=== PATIENT | female | born 1995 | race Two or more races ===

== ENCOUNTER 2017-03-27 12:30 | Inpatient (IN) | payer MEDICAID ==
[~2017-03-27] VITALS: Ht 160 cm; Wt 83.6 kg
[2017-03-28] MEDS ORDERED: EPHEDrine SULFATE 50 MG/5 ML SYG ONE (07:00)
[2017-03-28] MEDS ORDERED: OXYTOCIN 30 UNITS/LR 500 ML IV SCH (12:30)
[2017-03-28] MEDS ORDERED: METHYLERGONOVINE 0.2 MG INJ IM PRN ×2 (12:30→18:00)
[2017-03-28] MEDS ORDERED: MISOPROSTOL 200 MCG TAB PR PRN ×2 (12:30→18:00)
[2017-03-28] MEDS ORDERED: OXYTOCIN 30 UNITS/LR 500 ML IV PRN ×2 (12:30→18:00)
[2017-03-28] MEDS ORDERED: CEFAZOLIN 2 GM/50 ML (PMX) 50 ML IV SCH (12:30)
[2017-03-28] MEDS ORDERED: CARBOPROST 250 MCG INJ IM PRN ×2 (12:30→18:00)
[2017-03-28 12:51] VITALS: BP 107/53; PULSE 69; RESP 20
[2017-03-28 12:53] VITALS: Ht 160 cm; Wt 83.6 kg
[2017-03-28] MEDS ORDERED: PRENAT PO (12:57)
[2017-03-28 13:09] LABS: BASOPHILS % 0.3 % (0.0-2.0); EOSINOPHILS # 0.1 10^3/ul (0.0-0.5); EOSINOPHILS % 1.4 % (0.0-7.0); HEMOGLOBIN 12.4 g/dl (12.0-16.0); LYMPHOCYTES # 1.5 10^3/ul (0.8-2.9); LYMPHOCYTES % 20.5 % (15.0-51.0); MEAN CORPUSCULAR HEMOGLOBIN 30.5 pg (29.0-33.0); MEAN CORPUSCULAR HGB CONC 34.4 g/dl (32.0-37.0); MEAN CORPUSCULAR VOLUME 88.7 fl (82.0-101.0); MEAN PLATELET VOLUME 10.3 fl (7.4-10.4); MONOCYTE # 0.6 10^3/ul (0.3-0.9); MONOCYTES % 8.1 % (0.0-11.0); NEUTROPHIL # 5.1 10^3/ul (1.6-7.5); NEUTROPHILS % 68.8 % (39.0-77.0); PLATELET COUNT 254 10^3/UL (140-415); RED BLOOD COUNT 4.06 10^6/ul (4.20-5.40); RED CELL DISTRIBUTION WIDTH 13.3 % (11.5-14.5); WHITE BLOOD COUNT 7.4 10^3/ul (4.8-10.8)
[2017-03-28] MEDS: LACTATED RINGER'S 1,000 ML IV SCH ×2 (13:18→13:45)
[2017-03-28 13:23] LABS: ADD SCAN DIFF NO
[2017-03-28 13:42] LABS: INR 0.95; PARTIAL THROMBOPLASTIN TIME 30.3 Sec (25.0-35.0); PROTIME 12.7 Sec (12.2-14.2)
[2017-03-28] MEDS ORDERED: CITRIC ACID/NA CITRATE 30 ML CUP ONE (13:42)
[2017-03-28] MEDS ORDERED: ONDANSETRON 4 MG INJ IV PRN ×2 (14:30→16:00)
[2017-03-28] MEDS ORDERED: METOCLOPRAMIDE 10 MG INJ IV PRN (14:30)
[2017-03-28] MEDS ORDERED: HYDROmorphONE (0.2 MG/ML) 10ML SYG IV PRN ×3 (14:30)
[2017-03-28] MEDS ORDERED: DIPHENHYDRAMINE 50 MG INJ IV PRN ×2 (14:30→16:00)
[2017-03-28] MEDS ORDERED: MEPERIDINE 25 MG INJ IV PRN (14:30)
[2017-03-28] MEDS ORDERED: CITRIC ACID/SODIUM CITRATE 15 ML CUP PO ONE (14:30)
[2017-03-28] MEDS ORDERED: morphine SULFATE/PF (10 MG/10 ML) INJ ONE (14:34)
[2017-03-28] MEDS ORDERED: METOCLOPRAMIDE 10 MG INJ ONE (14:34)
[2017-03-28] MEDS ORDERED: KETOROLAC 30 MG INJ ONE (14:34)
[2017-03-28] MEDS ORDERED: OXYTOCIN 30 UNITS/LR 500 ML IV ONE (15:31)
--- NOTE | 2017-03-28 15:40 | HP ---
Date/Time of Note Date/Time of Note DATE: 03/28/17 TIME: 14:51 OB - History Hx of Present Free Text/Dictation 21 years old female 0001 admitted to hospital @ 39 weeks and 1 day history of previous This patient has been under the care of care clinic was not complicated with gestational diabetes -induced hypertension or any other serious surgical or medical condition Chief Complaint: 39 weeks 1 day history of previous Estimated Due Date: Apr 03, 2017 : 2 Para: 1 Care: Good Care Ultrasounds: Normal mid trimester US Obstetrical Complications: None Medical Complications: None Past Family/Social History * Past Medical, Surgical, Family and Obstetric Histories reviewed from chart. Rubella: immune RPR/VDRL: Negative GBS Status: Negative HBsAG: Negative OB Admission Exam Vital Signs Vital Signs Vital Signs Date Time Temp Pulse Resp B/P Pulse Ox O2 Delivery O2 Flow Rate FiO2 03/28/17 12:51 98.0 69 20 107/53 98 Room Air Physical Exam HEENT: WNL Heart: Rhythm Normal Lungs: Clear, Equal Abdomen: WNL Extremities: Normal Reflexes: Normal Cervical Dilatation: None Station: -2 Heart Rate: 130's Accelerations: Accelerations Present Decelerations: No Decelerations Varibility: Moderate Contractions on Admission: None Last 72 hours Lab Results CBC & BMP 03/28/17 12:38 OB Assessment/Plan Reason for admission: other ( 39 weeks and 1 day history of previous C- section, admitted for repeat ) ELISE KUMAR MD Mar 28, 2017 15:40
--- NOTE | 2017-03-28 15:54 | OPR ---
Operative Report Planned Procedure Free Text/Dictation 21 years old 39 weeks 1 day history of previous Procedure date Mar 28, 2017 Procedure(s) Repeat Performed by: ELISE KUMAR MD Assisting provider: JESUS MANUEL GANNON MD Anesthesiologist: MARINA CURTIS MD Pre-procedure diagnosis 39 weeks 1 day history of previous Anesthesia Type: spinal Procedure Description Under satisfactory [spine] anesthesia, the patient was prepped and draped and placed in a supine position, tilted to the left. Pfannenstiel incision was made , carried through the subcutaneous tissue. Bleeders brought under control with electrocautery. Fascia incised to the length of the incision. Rectus muscles from the fascia, divided midline. Peritoneum exposed, entered through a transverse incision. Exploration of abdomen revealed gravid uterus normal- appearing tubes and ovaries. Bladder flap was developed. Transverse incision was made in the lower segment of the uterus. Amniotic sac ruptured. [Clear] amniotic fluid noted. Baby boy was delivered from occiput posterior nasal oropharyngeal suction was performed. baby handed to the team for immediate attention. Patient received 20 units of Pitocin , placenta delivered manually intact. Uterine cavity cleaned with wet sponge and drainage established. Uterus closed in 2 layers using [Monocryl #1] in continue fashion. Peritoneal cavity irrigated with warm saline. Sponge, needle instrument count reported to be correct. Abdominal peritoneum closed with [] 2-0 chromic catgut continuously. Rectus muscle approximated with interrupted [2-0 chromic catgut]. Fascia closed with [#1 PDS], subcutaneous tissue approximated with interrupted 2 -0 chromic catgut , skin closed with sari. Estimated blood loss [] 600 mL. Urine bag contained [200]mL of urine Post-Procedure Post-procedure diagnosis Repeat Findings: live Baby [boy], Apgars [9] and [9], weight [3360], position [occiput transverse], [vertex] presentation [no nuchal cord]cord. Complications: None Pt Condition post procedure: stable Physician Certification I, the undersigned physician, hereby certify that I have discussed the procedure described in this consent form with this patient (or the patient's legal fraud representative), including: * The risk and benefits of the procedure; * Any adverse reactions that may reasonably be expected to occur; * Any alternative efficacious methods of treatment which may be medically viable ; * The potential problems that may occur during recuperation; * Potential for blood transfusion and associated risks/benefits; and * Any research or economic interest I may have regarding this treatment. I further certify that the patient/legally responsible person was encouraged to ask question and that all questions were answered. ELISE KUMAR MD Mar 28, 2017 15:52
[2017-03-28] MEDS ORDERED: NALOXONE (0.4 MG/ML) INJ IV PRN (16:00)
[2017-03-28] MEDS ORDERED: HYDROmorphONE 1 MG/ML SYG IV PRN ×3 (16:00)
[2017-03-28 18:00] VITALS: BP 95/55; PULSE 57; RESP 18
[2017-03-28] MEDS: IBUPROFEN 600 MG TAB PO SCH (18:00)
[2017-03-28] MEDS ORDERED: LANOLIN 7 GM TUBE TOP PRN (18:00)
[2017-03-28] MEDS ORDERED: OXYCODONE/ACETAMINOPHEN (5/325) TAB PO PRN ×2 (18:00)
[2017-03-28] MEDS ORDERED: ACETAMINOPHEN/CODEINE #3 TAB PO PRN ×2 (18:00)
[2017-03-28] MEDS: OXYTOCIN 30 UNITS/LR 500 ML IV SCH ×2 (19:10→23:47)
[2017-03-28 19:30] VITALS: BP 99/59; PULSE 58; RESP 19
[2017-03-28 20:30] VITALS: BP 98/58; PULSE 60; RESP 19
[2017-03-28] MEDS ORDERED: CEFAZOLIN 1 GM/50 ML (PMX) 50 ML IVPB SCH (23:00)
[2017-03-29] VITALS: BP 99/59; PULSE 58; RESP 18
[2017-03-29] MEDS: OXYTOCIN 30 UNITS/LR 500 ML IV SCH ×6 (01:51→21:51)
[2017-03-29 04:05] VITALS: BP 100/59; PULSE 63; RESP 20
--- NOTE | 2017-03-29 06:57 | PN ---
Date/Time of Note Date/Time of Note DATE: 03/29/17 TIME: 06:54 Assessment/Plan VTE Prophylaxis VTE Prophylaxis Intervention: SCD's Lines/Catheters IV Catheter Type (from Nrsg): Peripheral IV Subjective 24 Hr Interval Summary Free Text/Dictation anesthesia note: A 21 year female after post duramorph, pod ! pain is controlled, no itiching, headcahe, n/v, back pain or infection, irritation. care per surgery Exam/Review of Systems Vital Signs Vitals Vital Signs Date Time Temp Pulse Resp B/P Pulse Ox O2 Delivery O2 Flow Rate FiO2 03/29/17 04:05 98.3 63 20 100/59 Room Air 03/28/17 12:51 98 Intake and Output 03/28/17 03/28/17 03/29/17 15:00 23:00 07:00 Intake Total 1617 ml 705 ml Output Total 1150 ml 1000 ml Balance 467 ml -295 ml Results Result Diagram: 03/28/17 1238 Results 24 hrs Laboratory Tests Test 03/28/17 12:38 White Blood Count 7.4 Red Blood Count 4.06 L Hemoglobin 12.4 Hematocrit 36.0 L Mean Corpuscular Volume 88.7 Mean Corpuscular Hemoglobin 30.5 Mean Corpuscular Hemoglobin Concent 34.4 Red Cell Distribution Width 13.3 Platelet Count 254 Mean Platelet Volume 10.3 Neutrophils % 68.8 Lymphocytes % 20.5 Monocytes % 8.1 Eosinophils % 1.4 Basophils % 0.3 Nucleated Red Blood Cells % 0.0 Neutrophils # 5.1 Lymphocytes # 1.5 Monocytes # 0.6 Eosinophils # 0.1 Basophils # 0.0 Nucleated Red Blood Cells # 0.0 Prothrombin Time 12.7 Prothrombin Time Ratio 1.0 INR International Normalized Ratio 0.95 Activated Partial Thromboplast Time 30.3 Rapid Plasma Reagin NONREACTIVE Medications Medications Current Medications Naloxone HCl (Narcan) 0.1 mg Q2M PRN IV FOR RESP RATE 8 OR LESS; Start at 16:00; Stop 03/29/17 at 15:59 Ketorolac Tromethamine (Toradol) 30 mg Q6H PRN IV PAIN; Start 03/28/17 at 16:00 ; Stop 03/29/17 at 15:59 Hydromorphone HCl (Dilaudid) 1 mg Q3H PRN IV BREAKTHROUGH PAIN; Start 03/28/17 at 16:00; Stop 03/29/17 at 15:59 Hydromorphone HCl (Dilaudid) 0.2 mg Q3H PRN IV PAIN LEVEL 1-5; Start 03/28/17 at 16:00; Stop 03/29/17 at 15:59 Hydromorphone HCl (Dilaudid) 0.4 mg Q3H PRN IV PAIN LEVEL 6-10; Start 03/28/17 at 16:00; Stop 03/29/17 at 15:59 Diphenhydramine HCl (Benadryl) 25 mg Q6H PRN IV ITCHING; Start 03/28/17 at 16: 00; Stop 03/29/17 at 15:59 Ondansetron HCl (Zofran Inj) 4 mg Q6H PRN IV NAUSEA AND/OR VOMITING; Start at 16:00; Stop 03/29/17 at 15:59 Acetaminophen/ Codeine Phosphate (Tylenol No.3) 1 tab Q4H PRN PO PAIN LEVEL 4-6 ; Start 03/28/17 at 18:00 Acetaminophen/ Codeine Phosphate (Tylenol No.3) 2 tab Q4H PRN PO PAIN LEVEL 7- 10; Start 03/28/17 at 18:00 Oxycodone/ Acetaminophen (Percocet (5/ 325)) 1 tab Q4H PRN PO PAIN LEVEL 4-6; Start 03/28/17 at 18:00 Oxycodone/ Acetaminophen (Percocet (5/ 325)) 2 tab Q4H PRN PO PAIN LEVEL 7-10; Start 03/28/17 at 18:00 Ibuprofen (Motrin) 600 mg Q6 PO ; Start 03/28/17 at 18:00 Simethicone (Mylicon) 160 mg Q8H PRN PO DISTENSION/GAS/BLOATING; Start at 18:00 Senna/Docusate Sodium (Senokot-S) 1 tab BID PO ; Start 03/29/17 at 21:00 Diphtheria/ Tetanus/Acell Pertussis 0.5 ml 0.5 ml ONCE ONCE IM* ; Start 03/31/17 at 09:00; Stop 03/31/17 at 09:01 Oxytocin/Lactated Ringer's 500 ml @ 0 mls/hr ONCE PRN IV For Hemorrhage Management; Start 03/28/17 at 18:00 Methylergonovine Maleate (Methergine) 0.2 mg ONCE PRN IM VAGINAL BLEEDING; Start 03/28/17 at 18:00 Carboprost Tromethamine (Hemabate) 250 mcg ONCE PRN IM VAGINAL BLEEDING; Start 03/28/17 at 18:00 Misoprostol 1000 mcg 1,000 mcg ONCE PRN [place] VAGINAL BLEEDING; Start 03/28/17 at 18:00 Oxytocin/Lactated Ringer's 500 ml @ 125 mls/hr Q4H IV Last administered on 03/29 03:55; Admin Dose 125 MLS/HR; Start 03/28/17 at 17:51 MARINA CURTIS MD Mar 29, 2017 06:57
[2017-03-29] MEDS: IBUPROFEN 600 MG TAB PO SCH ×5 (08:00→23:38)
[2017-03-29 08:40] VITALS: BP 95/57; PULSE 68; RESP 18
[2017-03-29] MEDS: KETOROLAC 30 MG INJ IV PRN ×2 (08:40→15:22)
[2017-03-29 09:04] LABS: BASOPHILS % 0.4 % (0.0-2.0); EOSINOPHILS # 0.1 10^3/ul (0.0-0.5); EOSINOPHILS % 1.2 % (0.0-7.0); HEMATOCRIT 35.6 % (37.0-47.0); HEMOGLOBIN 12.3 g/dl (12.0-16.0); LYMPHOCYTES # 1.4 10^3/ul (0.8-2.9); LYMPHOCYTES % 13.8 % (15.0-51.0); MEAN CORPUSCULAR HEMOGLOBIN 30.7 pg (29.0-33.0); MEAN CORPUSCULAR HGB CONC 34.6 g/dl (32.0-37.0); MEAN CORPUSCULAR VOLUME 88.8 fl (82.0-101.0); MEAN PLATELET VOLUME 10.1 fl (7.4-10.4); MONOCYTE # 0.7 10^3/ul (0.3-0.9); MONOCYTES % 6.9 % (0.0-11.0); NEUTROPHIL # 7.7 10^3/ul (1.6-7.5); NEUTROPHILS % 77.2 % (39.0-77.0); PLATELET COUNT 233 10^3/UL (140-415); RED BLOOD COUNT 4.01 10^6/ul (4.20-5.40); RED CELL DISTRIBUTION WIDTH 13.2 % (11.5-14.5); WHITE BLOOD COUNT 9.9 10^3/ul (4.8-10.8)
--- NOTE | 2017-03-29 13:05 | PN ---
Date/Time of Note Date/Time of Note DATE: 03/29/17 TIME: 13:03 OB Subjective Subjective Subjective Laboratory Tests Test 03/29/17 08:30 White Blood Count 9.910^3/ul Red Blood Count 4.0110^6/ul Hemoglobin 12.3g/dl Hematocrit 35.6% Mean Corpuscular Volume 88.8fl Mean Corpuscular Hemoglobin 30.7pg Mean Corpuscular Hemoglobin Concent 34.6g/dl Red Cell Distribution Width 13.2% Platelet Count 04186^3/UL Mean Platelet Volume 10.1fl Neutrophils % 77.2% Lymphocytes % 13.8% Monocytes % 6.9% Eosinophils % 1.2% Basophils % 0.4% Nucleated Red Blood Cells % 0.0/100WBC Neutrophils # 7.710^3/ul Lymphocytes # 1.410^3/ul Monocytes # 0.710^3/ul Eosinophils # 0.110^3/ul Basophils # 0.010^3/ul Nucleated Red Blood Cells # 0.010^3/ul Current Medications Medications (Trade) Dose Ordered Sig/Eleanor Route PRN Reason Start Time Stop Time Status Last Admin Dose Admin Lactated Ringer's 1,000 ml @ 125 mls/hr Q8H IV 03/28/17 12:25 03/28/17 18:01 DC 03/28/17 13:45 Cefazolin Sodium/ Dextrose 50 ml @ 100 mls/hr ONCE IV 03/28/17 12:30 03/28/17 18:01 DC Oxytocin/Lactated Ringer's 500 ml @ 125 mls/hr ONCE IV 03/28/17 12:30 03/28/17 18:01 DC 03/28/17 16:04 Oxytocin/Lactated Ringer's 500 ml @ 0 mls/hr ONCE PRN IV For Hemorrhage Management 03/28/17 12:30 03/28/17 18:01 DC Methylergonovine Maleate (Methergine) 0.2 mg ONCE PRN IM VAGINAL BLEEDING 03/28/17 12:30 03/28/17 18:01 DC Carboprost Tromethamine (Hemabate) 250 mcg ONCE PRN IM VAGINAL BLEEDING 03/28/17 12:30 03/28/17 18:01 DC Misoprostol (Cytotec) 1,000 mcg ONCE PRN CO VAGINAL BLEEDING 03/28/17 12:30 03/28/17 18:01 DC Citric Acid/ Sodium Citrate (Bicitra) 30 ml STK-MED ONCE .ROUTE 03/28/17 13:42 03/28/17 13:43 DC Citric Acid/ Sodium Citrate (Bicitra) 30 ml PRE-PROCEDURE ONCE PO 03/28/17 14:30 03/28/17 14:31 DC 03/28/17 14:25 Metoclopramide HCl (Reglan) 10 mg STK-MED ONCE .ROUTE 03/28/17 14:34 03/28/17 14:35 DC Morphine Sulfate (Duramorph) 10 mg STK-MED ONCE .ROUTE 03/28/17 14:34 03/28/17 14:35 DC Ketorolac Tromethamine 30 mg 30 mg STK-MED ONCE .ROUTE 03/28/17 14:34 03/28/17 14:35 DC Oxytocin/Lactated Ringer's 500 ml @ ud STK-MED ONCE IV 03/28/17 15:31 03/28/17 15:32 DC Hydromorphone HCl (Dilaudid (Rec)) 0.2 mg PACU ORDER PRN IV MILD PAIN LEVEL 1-3 03/28/17 14:30 03/28/17 18:01 DC Hydromorphone HCl (Dilaudid (Rec)) 0.4 mg PACU ORDER PRN IV MODERATE PAIN LEVEL 4-6 03/28/17 14:30 03/28/17 18:01 DC Hydromorphone HCl (Dilaudid (Rec)) 0.6 mg PACU ORDER PRN IV SEVERE PAIN LEVEL 7-10 03/28/17 14:30 03/28/17 18:01 DC Ondansetron HCl (Zofran Inj) 4 mg PACU ORDER PRN IV NAUSEA AND/OR VOMITING 03/28/17 14:30 03/28/17 18:01 DC Metoclopramide HCl (Reglan) 10 mg PACU ORDER PRN IV NAUSEA AND/OR VOMITING 03/28/17 14:30 03/28/17 18:01 DC Meperidine HCl (Demerol) 25 mg PACU ORDER PRN IV POST-OP RIGORS 03/28/17 14:30 03/28/17 18:01 DC Diphenhydramine HCl (Benadryl) 25 mg PACU ORDER PRN IV PRURITUS 03/28/17 14:30 03/28/17 18:01 DC Naloxone HCl (Narcan) 0.1 mg Q2M PRN IV FOR RESP RATE 8 OR LESS 03/28/17 16:00 03/29/17 15:59 Ketorolac Tromethamine (Toradol) 30 mg Q6H PRN IV PAIN 03/28/17 16:00 03/29/17 15:59 03/29/17 08:40 Hydromorphone HCl (Dilaudid) 1 mg Q3H PRN IV BREAKTHROUGH PAIN 03/28/17 16:00 03/29/17 15:59 Hydromorphone HCl (Dilaudid) 0.2 mg Q3H PRN IV PAIN LEVEL 1-5 03/28/17 16:00 03/29/17 15:59 Hydromorphone HCl (Dilaudid) 0.4 mg Q3H PRN IV PAIN LEVEL 6-10 03/28/17 16:00 03/29/17 15:59 Diphenhydramine HCl (Benadryl) 25 mg Q6H PRN IV ITCHING 03/28/17 16:00 03/29/17 15:59 Ondansetron HCl (Zofran Inj) 4 mg Q6H PRN IV NAUSEA AND/OR VOMITING 03/28/17 16:00 03/29/17 15:59 Acetaminophen/ Codeine Phosphate (Tylenol No.3) 1 tab Q4H PRN PO PAIN LEVEL 4-6 03/28/17 18:00 Acetaminophen/ Codeine Phosphate (Tylenol No.3) 2 tab Q4H PRN PO PAIN LEVEL 7-10 03/28/17 18:00 Oxycodone/ Acetaminophen (Percocet (5/ 325)) 1 tab Q4H PRN PO PAIN LEVEL 4-6 03/28/17 18:00 Oxycodone/ Acetaminophen (Percocet (5/ 325)) 2 tab Q4H PRN PO PAIN LEVEL 7-10 03/28/17 18:00 Ibuprofen (Motrin) 600 mg Q6 PO 03/28/17 18:00 Simethicone (Mylicon) 160 mg Q8H PRN PO DISTENSION/GAS/BLOATING 03/28/17 18:00 Senna/Docusate Sodium (Senokot-S) 1 tab BID PO 03/29/17 21:00 Lanolin ([id number]) 1 applic BEDSIDE MEDICATION PRN TOP BEDSIDE FOR ELSA TO NIPPLES 03/28/17 18:00 Diphtheria/ Tetanus/Acell Pertussis 0.5 ml 0.5 ml ONCE ONCE IM* 03/31/17 09:00 03/31/17 09:01 Oxytocin/Lactated Ringer's 500 ml @ 0 mls/hr ONCE PRN IV For Hemorrhage Management 03/28/17 18:00 Methylergonovine Maleate (Methergine) 0.2 mg ONCE PRN IM VAGINAL BLEEDING 03/28/17 18:00 Carboprost Tromethamine (Hemabate) 250 mcg ONCE PRN IM VAGINAL BLEEDING 03/28/17 18:00 Misoprostol 1000 mcg 1,000 mcg ONCE PRN CO VAGINAL BLEEDING 03/28/17 18:00 Cefazolin Sodium 50 ml @ 100 mls/hr ONCE IVPB 03/28/17 23:00 03/28/17 23:29 DC 03/28/17 23:49 Oxytocin/Lactated Ringer's 500 ml @ 125 mls/hr Q4H IV 03/28/17 17:51 03/29/17 03:55 Post day 1 Afebrile vital signs stable abdomen soft bowel sounds present lochia moderate extremity negative ambulation encouraged ELISE KUMAR MD Mar 29, 2017 13:05
[2017-03-29 15:30] VITALS: BP 92/55; PULSE 82; RESP 16
[2017-03-29 20:00] VITALS: BP 100/54; PULSE 66; RESP 18
[2017-03-29] MEDS: SENNA/DOCUSATE NA (8.6MG/50MG) TAB PO SCH (21:30)
[2017-03-30 04:00] VITALS: BP 91/52; PULSE 63; RESP 20
[2017-03-30] MEDS: IBUPROFEN 600 MG TAB PO SCH ×4 (05:30→23:36)
[2017-03-30 08:30] VITALS: BP 99/55; PULSE 72; RESP 18
--- NOTE | 2017-03-30 08:33 | QN ---
Documentation Comment s/p c/s Subjective: no complaint, but she has abdominal pain + Flatus but no BM yet Objective: Afebrile, VSS NAD A&O Abdomen: soft, appropriate tender Incision: no sign of bleeding/infection mild lochia Extremity: 1+ edema bilaterally Assessment: S/p C/S Recovering Well Plan: current care KOURTNEY TEMPLETON MD Mar 30, 2017 08:33
[2017-03-30] MEDS: SENNA/DOCUSATE NA (8.6MG/50MG) TAB PO SCH ×2 (09:52→20:39)
[2017-03-30 16:00] VITALS: BP 95/66; PULSE 83; RESP 16
[2017-03-30 20:15] VITALS: BP 95/55; PULSE 60; RESP 20
[2017-03-30] MEDS: OXYTOCIN 30 UNITS/LR 500 ML IV SCH ×4 (21:35→21:46)
[2017-03-30 23:45] VITALS: BP 104/61; PULSE 56; RESP 19
[2017-03-31 04:30] VITALS: BP 93/55; PULSE 62; RESP 18
[2017-03-31] MEDS: IBUPROFEN 600 MG TAB PO SCH ×3 (05:39→17:46)
[2017-03-31] MEDS: OXYTOCIN 30 UNITS/LR 500 ML IV SCH ×2 (05:51→06:19)
[2017-03-31 07:45] VITALS: BP 89/50; PULSE 56; RESP 18
[2017-03-31] MEDS: SENNA/DOCUSATE NA (8.6MG/50MG) TAB PO SCH ×2 (08:30→20:42)
[2017-03-31] MEDS ORDERED: DIPHTH/TET/ACEL PERTUSS (ADULT) 0.5 ML VIAL IM* ONE (09:00)
[2017-03-31 16:48] VITALS: BP 128/71; PULSE 57; RESP 17
--- NOTE | 2017-03-31 18:26 | QN ---
Documentation Comment pod3 pt doing well vss exam wnl contunue care DARYA RENTERIA MD Mar 31, 2017 18:26
[2017-03-31] MEDS ORDERED: BISACODYL (EC) 5 MG TAB PO ONE (18:30)
[2017-03-31 20:30] VITALS: BP 104/54; PULSE 65; RESP 18
[2017-04-01] MEDS: IBUPROFEN 600 MG TAB PO SCH ×3 (00:02→11:43)
[2017-04-01 04:15] VITALS: BP 97/71; PULSE 69; RESP 17
[2017-04-01 07:30] VITALS: BP 110/66; PULSE 58; RESP 18
[2017-04-01] MEDS: SENNA/DOCUSATE NA (8.6MG/50MG) TAB PO SCH (09:03)
--- NOTE | 2017-04-01 13:05 | PD.PPDC ---
[facility] Discharge Instruction Condition Patient Condition: Good Diet Diet: Resume Regular Diet Activity/Restrictions Activity: Normal Activity May Shower Restrictions: No Exercising No Lifting No Driving No Sexual Activity Nothing in the Vagina No [place] No Tampons, douche Wound/Drain Care Instructions Wound/Drain Care Instructions: Remove Steri Strips in 1 week Follow-up Follow-up with Physician: 4 Provider Information: Appointment clinic 3-4 days to discontinue sari Return to clinic for PAPER TWISTER Instructions: Fever greater than 101 Chills Worsening abdominal pain Excessive Vaginal Bleeding More than 2 pads per hour Unable to tolerate diet OB Instructions: Breast Tenderness Depression Blurried Vision Headache Surgical Instructions: Incisional Drainage Incisional Redness ELISE KUMAR MD Apr 01, 2017 13:05
--- NOTE | 2017-04-01 13:09 | DS ---
Date/Time of Note Date/Time of Note DATE: 04/01/17 TIME: 13:06 Discharge Summary Admission/Discharge Info Admit Date/Time Mar 28, 2017 at 12:10 Discharge Date/Time April 01, 2017 Discharge Diagnosis Forth day the post repeat Patient Condition: Good Procedures Repeat Hx of Present Illness Term history of previous Hospital Course Satisfactory uneventful incision inspected the day of discharge found free of inflammation and infection patient discharged home with follow-up instructions to be seen at the clinic in 4 days Home Meds Reported Medications Multivit/Min/Fol Ac/Iron/Pren* ( S*) 1 Tab Tab, 1 TAB PO DAILY, TAB 03/28/17 Follow-up Plan Appointment clinic in 4 days to LINK his sari Primary Care Provider Care Physician No Primary Time spent on discharge: < 30 minutes ELISE KUMAR MD Apr 01, 2017 13:09
== END 2017-04-01 17:10 | disposition home or self-care (01) | DRG 766 ==
LOC: L-D 03-28 12:10 → PP1 03-28 18:03
PROVIDERS: ADMIT Obstetrics & Gynecology; ATTEND Obstetrics & Gynecology
PROC: 10D00Z1 Extraction of Products of Conception, Low, Open Approach (ICD-10-PCS; principal; 2017-03-28 14:00)
DX: O34.219 Maternal care for unspecified type scar from previous cesarean delivery (principal); Z37.0 Single live birth; Z3A.39 39 weeks gestation of pregnancy
CPT/HCPCS: 85025; 85610; 85730; 86592; 86850; 86900; 86901; 90715; 99464; J0690; J1885; J2274; J2590; J2765; J7120